=== PATIENT | female | born 1950 | race Caucasian/White ===

== ENCOUNTER → 2022-04-04 11:06 | Outpatient (CLI) | payer MEDICARE, OTHER, SELFPAY ==
--- NOTE | 2022-04-04 11:12 | DI.MRI.S_ITS ---
PROCEDURE: MR LUMBAR SPINE WO CON INDICATIONS: Radiculopathy, lumbar region TECHNIQUE: Noncontrast sagittal T1 spin echo and T2 fast echo, sagittal STIR, and T2 fast spin echo through the lumbar spine. In cases with scoliosis, additional coronal T2 fast spin echo may be performed. COMPARISON: [facility], LAY, MRI L-SPINE W/O CONTRAST, 01/09/2007, 14:49[facility], 12:08. FINDINGS: Image quality: Excellent. Alignment and Curvature: There is approximately 4 millimeters L3-L4 anterolisthesis. There is approximately 2 millimeters of L4-L5 anterolisthesis. Bone Marrow: Postsurgical changes compatible with L4-L5 TLIF. Fifth Modic type 2 reactive endplate changes noted adjacent to the L2-L3, L3-L4, L4-L5 and L5-S1 discs. No acute vertebral body compression fractures. Spinal Cord: Conus medullaris terminates at the L2 level. Visualized cord demonstrates normal signal and size. Paraspinous Soft Tissues: No paravertebral masses. T12-L1: Slight loss of disc signal. Mild, diffuse disc bulge. Mild narrowing of the central canal. No neural foraminal narrowing. No neural compression. L1-L2: Loss of disc signal. Mild, diffuse disc bulge. Mild bilateral facet hypertrophy. Mild narrowing of the central canal. Mild bilateral neural foraminal narrowing. No neural compression. L2-L3: Loss of disc signal and height. Mild, diffuse disc bulge. Large right central disc extrusion. Extruded disc material extends superiorly along the posterior margin of the L2 vertebral body to a pedicular location. Moderate bilateral facet hypertrophy. Severe narrowing of the central canal with mild compression of the traversing nerve roots of the cauda equina. Moderate right and severe left neural foraminal narrowing with slight compression of the exiting left L2 nerve root. L3-L4: Loss of disc signal and height. Mild, diffuse disc bulge. Moderate bilateral facet hypertrophy. Severe narrowing of the central canal with slight compression of the traversing nerve roots of the cauda equina. Moderate to severe right and severe left neural foraminal narrowing with slight compression of the exiting right L3 nerve root and marked compression of the exiting left L3 nerve root. L4-L5: Status post fusion. Mild bilateral facet hypertrophy. Mild narrowing of the central canal. Mild bilateral neural foraminal narrowing. No neural compression L5-S1: Loss of disc signal and slight loss of disc height. Mild, diffuse disc bulge. [id number] bilateral facet hypertrophy. No central stenosis. Moderate right and mild left neural foraminal narrowing. No neural compression. IMPRESSION: 1. Postsurgical changes. 2. Multilevel degenerative disc disease. 3. Multilevel facet arthropathy. 4. Severe L2-L3 and L3-L4 central canal narrowing with slight compression of the traversing nerve roots of the cauda equina. 5. Severe left L2-L3 neural foraminal narrowing with compression of the exiting left L2 nerve root. Moderate to severe right and severe left L3-L4 neural foraminal narrowing with slight compression of the exiting right L3 nerve root and marked compression of the exiting left L3 nerve root. 6. Large L2-L3 right central disc extrusion. Extruded disc material causes severe central canal narrowing and impinges upon the traversing nerve roots of the cauda equina. Dictated by: Bianca Florentino MD, PhD on 04/04/2022 at 14:17 Approved by: Bianca Florentino MD, PhD on 04/04/2022 at 14:30
== END ==
PROVIDERS: PCP Internal Medicine; Referring Provider Acupuncturist; Visit Provider Acupuncturist
DX: M51.16 Intervertebral disc disorders with radiculopathy, lumbar region (principal); M51.17 Intervertebral disc disorders with radiculopathy, lumbosacral region; M48.061 Spinal stenosis, lumbar region without neurogenic claudication; M48.07 Spinal stenosis, lumbosacral region; M47.26 Other spondylosis with radiculopathy, lumbar region; M47.27 Other spondylosis with radiculopathy, lumbosacral region; Z98.1 Arthrodesis status
CPT/HCPCS: 72148

== ENCOUNTER → 2022-06-17 09:25 | Outpatient (CLI) | payer MEDICARE, OTHER, SELFPAY ==
--- NOTE | 2022-06-17 | DI.CT.S_ITS ---
PROCEDURE: CT LUMBAR SPINE WO CON INDICATIONS: Spinal stenosis, lumbar region with neurogenic claudication TECHNIQUE: Noncontrast 3 mm thick sections acquired from the T12 level to the sacrum. Sagittal and coronal reformats were constructed. For radiation dose reduction, the following was used: automated exposure control. COMPARISON: [facility], , CT L SPINE WITHOUT CONTRAST, 01/03/2007, 12:08. [facility], RG, MRI L-SPINE W/O CONTRAST, 01/09/2007, 14:49. [facility], MR, MR LUMBAR SPINE WO CON, 04/04/2022, 11:17. FINDINGS: Image quality: Excellent. Bones: No acute vertebral body compression fractures. No suspicious lytic or blastic bony lesions. No pars defects. Mild dextroconvex scoliotic curvature is seen. Minimal anterolisthesis minimal anterolisthesis is seen at L4-L5 and L5-S1. T12-L1: Normal. L1-L2: Normal. L2-L3: Moderate loss of disc height is seen. Prominent vacuum disc phenomenon is seen Endplate irregularity and sclerosis can be seen. Posteriorly projected endplate osteophytes are seen. There is moderate facet hypertrophy seen, left worse than right. There is at least moderate bilateral neural foraminal narrowing seen. At least moderate central canal narrowing is seen. L3-L4: At least moderate loss of disc height is seen. Endplate irregularity and sclerosis can be seen. Vacuum disc phenomenon is seen at this level. At least moderate disc bulge is seen. There is moderate to severe bilateral neural foraminal narrowing seen, right worse than left. Moderate central canal narrowing is seen. L4-L5: Postoperative changes are seen at this level, with bilateral pedicle screws and vertical fixation rods. A disc spacer is also seen. No findings of hardware failure or hardware loosening are seen. There has been removal of portions of the posterior elements. There is mild right-sided and no left-sided neural foraminal narrowing. No central canal narrowing is seen. L5-S1: At least moderate loss of disc height is seen. Vacuum disc phenomenon is seen at this level. Endplate irregularity and sclerosis can be seen. Posteriorly projected endplate osteophytes are seen. At least moderate facet hypertrophy is seen at this level. There is moderate to severe right-sided and at least moderate left-sided neural foraminal narrowing. Mild central canal narrowing is seen. Soft tissues: No retroperitoneal masses or hematomas. Visualized aorta is normal in caliber. Atherosclerotic calcification is noted. IMPRESSION: Unremarkable L4-5 postoperative hardware, without findings of failure or loosening. Multiple levels relatively prominent lumbar spine degenerative change can be seen. Dictated by: Alexis Wright M.D. on 06/17/2022 at 16:17 Approved by: Alexis Wright M.D. on 06/17/2022 at 16:20
== END ==
PROVIDERS: PCP Internal Medicine; Referring Provider Neurological Surgery; Visit Provider Neurological Surgery
DX: M48.062 Spinal stenosis, lumbar region with neurogenic claudication (principal); Z98.1 Arthrodesis status
CPT/HCPCS: 72131

== ENCOUNTER → 2022-11-19 10:10 | Outpatient (CLI) | payer MEDICARE, OTHER, SELFPAY ==
--- NOTE | 2022-11-19 | DI.CT.S_ITS ---
PROCEDURE: CT LUMBAR SPINE WO CON INDICATIONS: SPINAL STENOSIS TECHNIQUE: Noncontrast 3 mm thick sections acquired from the T12 level to the sacrum. Sagittal and coronal reformats were constructed. For radiation dose reduction, the following was used: automated exposure control. COMPARISON: [facility], CT, CT LUMBAR SPINE WO CON, 06/17/2022, 9:33. FINDINGS: Image quality: Excellent. Bones: Patient is status post posterior fusion and posterior decompression at L2 through L4 levels with intervertebral spacer seen at L2-3 level. There is interval removal of transpedicular screws at L5 level. There is mild rightward curvature of thoracolumbar spine with apex at L2 level. No evidence of hardware loosening or failure. No acute vertebral body compression fractures. No suspicious lytic or blastic bony lesions. T12-L1: Within normal limits. L1-L2: Diffuse disc bulge and bilateral facet arthrosis is seen. Mild central canal stenosis and bilateral neural foraminal narrowing is seen. L2-L3: Postsurgical changes are noted. Bilateral facet arthrosis is seen. No significant central canal stenosis or neural foraminal narrowing. L3-L4: Postsurgical changes are noted. Degenerative endplate changes and loss of disc height is also seen. There is dorsal disc osteophyte complex formation and bilateral facet arthrosis. No significant central canal stenosis. Left worse than right bilateral neural foraminal narrowing is noted. L4-L5: Postsurgical changes are noted. There is small dorsal disc osteophyte complex formation and bilateral facet arthrosis. No significant central canal stenosis or neural foraminal narrowing. L5-S1: Loss of disc height and degenerative endplate changes are seen. Broad-based disc bulge and bilateral facet arthrosis is seen with mild central canal stenosis and mild bilateral neural foraminal narrowing. Soft tissues: No retroperitoneal masses or hematomas. Visualized aorta is normal in caliber. IMPRESSION: 1. Patient is status post interval laminectomy and posterior fusion at L2 through L4 levels. Prior fusion at L4-5 level with interval removal of fixation hardware at L5 level as above. No acute vertebral body compression fracture. No gross hardware loosening or failure. 2. Mild rightward curvature of thoracolumbar spine with apex at L2 level. 3. Degenerative disc bulge and bilateral facet arthrosis at L1-2 and L5-S1 levels as described above. Bilateral facet arthrosis are noted at L2-3 through L4-5 levels. There is dorsal disc osteophyte complex formation at L3-4 and L4-5 levels causing bilateral neural foraminal narrowing at L3-4 level as above. Dictated by: Librado Galo M.D. on 11/19/2022 at 11:25 Approved by: Librado Galo M.D. on 11/19/2022 at 13:25
== END ==
PROVIDERS: PCP Internal Medicine; Referring Provider Neurological Surgery; Visit Provider Neurological Surgery
DX: M48.062 Spinal stenosis, lumbar region with neurogenic claudication (principal); M51.36 Other intervertebral disc degeneration, lumbar region; M51.37 Other intervertebral disc degeneration, lumbosacral region; M47.816 Spondylosis without myelopathy or radiculopathy, lumbar region; M47.817 Spondylosis without myelopathy or radiculopathy, lumbosacral region; Z98.1 Arthrodesis status
CPT/HCPCS: 72131

== ENCOUNTER → 2023-02-19 12:46 | Outpatient (CLI) | payer MEDICARE, OTHER, SELFPAY ==
--- NOTE | 2023-02-19 12:48 | DI.CT.S_ITS ---
PROCEDURE: CT LUMBAR SPINE WO CON INDICATIONS: Spinal stenosis, lumbar region TECHNIQUE: Noncontrast 3 mm thick sections acquired from the T12 level to the sacrum. Sagittal and coronal reformats were constructed. For radiation dose reduction, the following was used: automated exposure control. COMPARISON: [facility], CT, CT LUMBAR SPINE WO CON, 11/19/2022, 10:21. FINDINGS: Image quality: Excellent. Bones: There is normal bony alignment. No acute vertebral body compression fractures. No suspicious lytic or blastic bony lesions. No pars defects. Rightward curvature of the lumbar spine. L2 through L4 posterior fixation with no hardware complication. T12-L1: No significant disc bulge. The foramina and central canal are patent. L1-L2: Diffuse disc bulge and mild bilateral facet arthrosis. Mild foraminal stenosis. No significant central canal stenosis. L2-L3: Postoperative changes of discectomy and posterior fixation. The foramina and central canal are patent. L3-L4: Postoperative changes. Severe endplate degenerative changes, similar to the prior CT on 11/19/2022. L4-L5: Degenerative endplate changes and loss of disc height. Facet arthrosis and grade 1 anterolisthesis. Diffuse disc bulge and disc osteophyte. Moderate central canal stenosis. L5-S1: Degenerative endplate changes and loss of disc height. Facet arthrosis causes moderate right foraminal stenosis. The left foramen is patent. Moderate central canal stenosis. Soft tissues: No retroperitoneal masses or hematomas. Visualized aorta is normal in caliber. IMPRESSION: 1. Postoperative changes as detailed above with no hardware complication. 2. Mild rightward curvature of the thoraco lumbar spine. 3. Multilevel degenerative disc disease causing foraminal stenosis as detailed above. 4. Moderate central canal stenosis at L4-5 and L5-S1 Dictated by: Curtis Lange M.D. on 02/19/2023 at 15:37 Approved by: Curtis Lange M.D. on 02/19/2023 at 16:07
== END ==
PROVIDERS: PCP Internal Medicine; Referring Provider Neurological Surgery; Visit Provider Physician Assistant
DX: M48.062 Spinal stenosis, lumbar region with neurogenic claudication (principal)
CPT/HCPCS: 72131

== ENCOUNTER → 2023-06-29 11:48 | Outpatient (CLI) | payer MEDICARE, OTHER, SELFPAY ==
--- NOTE | 2023-06-29 11:51 | DI.MRI.S_ITS ---
PROCEDURE: MR LUMBAR SPINE WO CON INDICATIONS: Spinal stenosis, lumbar region with neurogenic cla TECHNIQUE: Noncontrast sagittal T1 spin echo and T2 fast echo, sagittal STIR, and T2 fast spin echo through the lumbar spine. In cases with scoliosis, additional coronal T2 fast spin echo may be performed. COMPARISON: [facility], MR, MR LUMBAR SPINE WO CON, 04/04/2022, 11:17. FINDINGS: Image quality: Excellent. Alignment and Curvature: There is normal bony alignment. Bone Marrow: Postoperative changes of L2 through L4 posterior fixation with laminectomies and internal fixation. Fixation hardware at L5 has been removed. No abnormal signal to suggest acute fracture. Multilevel endplate degenerative changes are similar to prior MRI. Convexity of the superior endplate of L2 is unchanged. Spinal Cord: Conus medullaris terminates at the L1 level. Visualized cord demonstrates normal signal and size. Paraspinous Soft Tissues: No paravertebral masses. T12-L1: No significant disc bulge. The foramina and central canal are patent. L1-L2: The disc is desiccated consistent with degeneration. There is a diffuse disc bulge with a central/left paracentral protrusion which extends cephalad. Uncovertebral hypertrophy and facet hypertrophy. This causes mild right and severe left foraminal stenosis. The central canal has severe stenosis. L2-L3: Postoperative changes of discectomy and posterior fixation. Evaluation of the foramina is limited by artifact from fixation hardware, however the foramina appear patent. The central canal is patent. L3-L4: Postoperative changes of discectomy and posterior fixation with laminectomy. A seroma is present within the posterior soft tissues measuring 1.7 x 1.0 cm axial by 2.4 cm craniocaudal. Evaluation of the foramina is limited by artifact from fixation hardware, however the foramina appear to be patent. The central canal is patent. L4-L5: The disc is desiccated consistent with degeneration. The foramina and central canal are patent. L5-S1: The disc is desiccated consistent with degeneration. Endplate degenerative changes and diffuse disc bulge and facet hypertrophy on the right causes moderate right foraminal stenosis and mild left foraminal stenosis. The central canal is patent. IMPRESSION: 1. Postoperative changes of L2 through L5 posterior fixation with laminectomy at L3 and L4 and removal of posterior fixation at L5. 2. Severe central canal stenosis at L1-2 as detailed above. 3. Multilevel foraminal stenosis as detailed above. 3. No acute abnormality. Dictated by: Curtis Lange M.D. on 06/30/2023 at 8:33 Approved by: Curtis Lange M.D. on 06/30/2023 at 9:21
== END ==
PROVIDERS: PCP Internal Medicine; Referring Provider Physician Assistant; Visit Provider Physician Assistant
DX: M48.062 Spinal stenosis, lumbar region with neurogenic claudication (principal)
CPT/HCPCS: 72148

== ENCOUNTER → 2023-07-27 13:09 | Outpatient (CLI) | payer MEDICARE, OTHER, SELFPAY ==
--- NOTE | 2023-07-27 13:16 | DI.CT.S_ITS ---
PROCEDURE: CT LUMBAR SPINE WO CON INDICATIONS: Spinal stenosis, lumbar region with neurogenic cla TECHNIQUE: Noncontrast 3 mm thick sections acquired from the T12 level to the sacrum. Sagittal and coronal reformats were constructed. For radiation dose reduction, the following was used: automated exposure control. COMPARISON: [facility], CT, CT LUMBAR SPINE WO CON, 02/19/2023, 13:17. FINDINGS: Image quality: Excellent. Bones: Again noted is posterior lateral sandra and pedicle screw fixation of L2 through L4 and posterior decompression involving L3-L4 through L4-L5. There is an interbody spacer at L2-L3. There is evidence of a remote left L5 pedicle screw. There is interval compression fracture of the superior endplate of L2, possibly acute, with the left pedicle screw now extending through the superior endplate into the disc space minimally. No evidence of hardware failure or loosening. Alignment is not significantly changed. Trace anterolisthesis of L2 on L3 and L3 on L4. T12-L1: No canal stenosis or foraminal stenosis. L1-L2: Disc bulge. Facet hypertrophy. Mild canal stenosis. Moderate left foraminal stenosis. L2-L3: Fusion, posterior decompression. No canal stenosis or foraminal stenosis. L3-L4: Fusion. Posterior decompression. No canal stenosis there is probably no significant foraminal stenosis. L4-L5: Posterior decompression. No canal stenosis or foraminal stenosis. L5-S1: Facet hypertrophy. No canal stenosis. Moderate to severe right foraminal stenosis. Soft tissues: No retroperitoneal masses or hematomas. Visualized aorta is normal in caliber. IMPRESSION: 1. Interval L2 superior endplate compression fracture, possibly acute. The left pedicle screw of the fixation hardware now extends minimally through the superior endplate of L2 into the disc space. 2. Mild canal stenosis at L1-L2, immediately above the fusion. 3. No canal stenosis or significant foraminal stenosis identified at the fused levels. 4. Moderate to severe right foraminal narrowing at L5-S1. Dictated by: Ajit Son M.D. on 07/27/2023 at 19:59 Approved by: Ajit Son M.D. on 07/27/2023 at 20:07
== END ==
PROVIDERS: PCP Internal Medicine; Referring Provider Physician Assistant; Visit Provider Physician Assistant
DX: S32.029A Unspecified fracture of second lumbar vertebra, initial encounter for closed fracture (principal); M48.062 Spinal stenosis, lumbar region with neurogenic claudication; Z98.1 Arthrodesis status; M48.07 Spinal stenosis, lumbosacral region
CPT/HCPCS: 72131

== ENCOUNTER → 2023-10-20 09:31 | Outpatient (CLI) | payer MEDICARE, OTHER, SELFPAY ==
--- NOTE | 2023-10-20 09:38 | DI.RAD.S_ITS ---
PROCEDURE: XR LUMBAR SPINE 2-3V INDICATIONS: SPINE SURGERY TECHNIQUE: 3 views of the lumbar spine were acquired. COMPARISON: [facility], CT, CT LUMBAR SPINE WO CON, 07/27/2023, 13:17. [facility], MR, MR LUMBAR SPINE WO CON, 06/29/2023, 12:43. [facility], CT, CT LUMBAR SPINE WITH/WITHOUT CONTRAST, 06/25/2023, 12:28. FINDINGS: Extensive postsurgical posterior fusion from L1 through 5 are present, as well as kyphoplasty cement is identified. Kyphoplasty cement is noted overlying the L2-3 disc space. Hardware is intact without hardware fracture or periprosthetic lucency to suggest loosening. Alignment is stable. IMPRESSION: Postsurgical changes including cement extravasation as above. Dictated by: Korina Noel M.D. on 10/20/2023 at 15:40 Approved by: Korina Noel M.D. on 10/20/2023 at 15:42
== END ==
PROVIDERS: PCP Student in an Organized Health Care Education/Training Program; Referring Provider Neurological Surgery; Visit Provider Neurological Surgery
DX: Z98.1 Arthrodesis status (principal); Z09 Encounter for follow-up examination after completed treatment for conditions other than malignant neoplasm
CPT/HCPCS: 72100

== ENCOUNTER → 2024-01-05 09:37 | Outpatient (CLI) | payer MEDICARE, OTHER, SELFPAY ==
--- NOTE | 2024-01-05 09:41 | DI.CT.S_ITS ---
PROCEDURE: CT LUMBAR SPINE WO CON INDICATIONS: post lumbar fusion TECHNIQUE: Noncontrast 3 mm thick sections acquired from the T12 level to the sacrum. Sagittal and coronal reformats were constructed. For radiation dose reduction, the following was used: automated exposure control. COMPARISON: [facility], CT, CT LUMBAR SPINE WO CON, 07/27/2023, 13:17. FINDINGS: Image quality: Excellent. Bones: Previously, there had been posterior lateral sandra and pedicle screw fixation from L2 through L4, as well as remote posterior laminectomy at L2-L3 and L3-L4. The previous L2 screws had a superior course, and extended to or through the superior endplate. L2 headache compression fracture. There is been interval extension of the bilateral posterior lateral fusion. There is now bilateral posterior lateral fusion extending from T12 through L5. The L2 screws have a different course, and are fully within the L2 vertebral body. Also, posterior laminectomy has been performed at L1-L2. Additionally, there is been interval percutaneous cement fixation of T12, L1, L2, and L5. There is no evidence of hardware failure or loosening. No acute vertebral body compression fractures. No suspicious lytic or blastic bony lesions. No pars defects. T11-T12: No canal stenosis or foraminal stenosis. T12-L1: No canal stenosis or foraminal stenosis. L1-L2: Development of trace retrolisthesis of L1 on L2. Posterior decompressive laminectomy. No canal stenosis. Moderate left foraminal stenosis. L2-L3: Posterior decompression and posterior lateral fusion. No canal stenosis or foraminal stenosis. L3-L4: Posterior decompression and posterior lateral fusion. No canal stenosis. Moderate bilateral foraminal stenosis. L4-L5: Probable remote left hemilaminectomy. Posterior lateral fusion. No canal stenosis or foraminal stenosis.. L5-S1: Facet hypertrophy. No canal stenosis or foraminal stenosis. Soft tissues: No retroperitoneal masses or hematomas. Visualized aorta is normal in caliber. IMPRESSION: 1. Interval revision and extension of posterior lateral fusion hardware, which now spans from T12 through L5. Expected appearance. No evidence of hardware failure or loosening. 2. Interval posterior decompressive laminectomy at L1-L2. 3. Interval percutaneous cement fixation involving T12, L1, L2, and L5, with expected appearance. 4. No canal stenosis. 5. Moderate bilateral foraminal stenosis at L3-L4. Dictated by: Ajit Son M.D. on 01/05/2024 at 11:22 Approved by: Ajit Son M.D. on 01/05/2024 at 11:32
== END ==
PROVIDERS: PCP Student in an Organized Health Care Education/Training Program; Referring Provider Neurological Surgery; Visit Provider Neurological Surgery
DX: M48.061 Spinal stenosis, lumbar region without neurogenic claudication (principal); Z98.1 Arthrodesis status
CPT/HCPCS: 72131

== ENCOUNTER → 2024-04-13 08:50 | Outpatient (CLI) | payer MEDICARE, OTHER, SELFPAY ==
--- NOTE | 2024-04-13 | DI.MG.S_ITS ---
BILATERAL DIGITAL SCREENING MAMMOGRAM 3D/2D WITH CAD POST LUMPECTOMY: 04/13/2024 CLINICAL: Routine screening. Personal history of left breast cancer. Comparison is made to exams dated: 05/10/2022 mammogram, 12/12/2020 mammogram, and 12/14/2019 mammogram - [facility]. Both breasts are heterogeneously dense, which may obscure small masses (category c / 51-75% glandular tissue). Current study was also evaluated with a Computer Aided Detection (CAD) system. There are benign calcifications in the left breast. There also are benign vascular calcifications in the right breast. Additionally, there are benign post operative findings in the left breast. No significant masses, calcifications, or other findings are seen in either breast. There has been no significant interval change. IMPRESSION: BENIGN There is no mammographic evidence of malignancy. A 1 year screening mammogram is recommended. This exam was interpreted at Station ID: [id number]. NOTE: For mammograms, a report in lay terms will be sent to the patient. Approximately 15% of breast malignancies will not be visualized mammographically. In the management of a palpable breast mass, a negative mammogram must not discourage biopsy of a clinically suspicious lesion. Electronically Signed By: Trav franco/raffi:04/13/2024 09:55:43 letter sent: Normal Exam ACR BI-RADS Category 2: Benign Finding(s) [id number]
== END ==
PROVIDERS: PCP Student in an Organized Health Care Education/Training Program; Referring Provider Student in an Organized Health Care Education/Training Program; Visit Provider Student in an Organized Health Care Education/Training Program
DX: Z12.31 Encounter for screening mammogram for malignant neoplasm of breast (principal); Z85.3 Personal history of malignant neoplasm of breast; R92.333 Mammographic heterogeneous density, bilateral breasts
CPT/HCPCS: 77063; 77067

== ENCOUNTER → 2024-04-13 08:52 | Outpatient (CLI) | payer MEDICARE, OTHER, SELFPAY ==
--- NOTE | 2024-04-13 | DI.CT.S_ITS ---
PROCEDURE: CT LUMBAR SPINE WO CON INDICATIONS: S/P LUMBAR SPINAL FUSION/CLOSED FX OF 2ND L VERT TECHNIQUE: Noncontrast 3 mm thick sections acquired from the T12 level to the sacrum. Sagittal and coronal reformats were constructed. For radiation dose reduction, the following was used: automated exposure control. COMPARISON: [facility], CT, CT LUMBAR SPINE WO CON, 01/05/2024, 9:44. FINDINGS: Image quality: Excellent. Bones: Grade 1 retrolisthesis of L1-L2. Mild anterolisthesis of L4 on L5 and L5 on S1. Mild dextrocurvature of the lumbar spine. Postsurgical changes from T12 through L5 posterior spinal fixation, laminectomy and discectomy. Stable mild superior endplate fracture of L2. No acute vertebral body compression fractures. No suspicious lytic or blastic bony lesions. No pars defects. Redemonstration of multilevel degenerative changes. There is no central canal stenosis throughout. Moderate left neural foraminal stenosis at L1-L2 is redemonstrated. Moderate bilateral neural foraminal stenosis at L3-L4 stable. Soft tissues: No retroperitoneal masses or hematomas. Visualized aorta is normal in caliber. Atherosclerotic vascular calcifications. IMPRESSION: Stable appearance of multilevel degenerative changes of the lumbar spine status post T12 through L5 posterior spinal fixation and discectomy. No evidence of hardware complication. Dictated by: Jeremiah Herbert M.D. on 04/13/2024 at 12:46 Approved by: Jeremiah Herbert M.D. on 04/13/2024 at 12:51
== END ==
PROVIDERS: PCP Student in an Organized Health Care Education/Training Program; Referring Provider Neurological Surgery; Visit Provider Neurological Surgery
DX: S32.029K Unspecified fracture of second lumbar vertebra, subsequent encounter for fracture with nonunion (principal); M47.816 Spondylosis without myelopathy or radiculopathy, lumbar region; Z98.1 Arthrodesis status
CPT/HCPCS: 72131

== ENCOUNTER → 2024-08-17 12:02 | Outpatient (CLI) | payer MEDICARE, OTHER, SELFPAY ==
--- NOTE | 2024-08-17 12:16 | DI.CT.S_ITS ---
PROCEDURE: CT LUMBAR SPINE WO CON INDICATIONS: NONHEALING FRACTURE LUMBAR TECHNIQUE: Noncontrast 3 mm thick sections acquired from the T12 level to the sacrum. Sagittal and coronal reformats were constructed. For radiation dose reduction, the following was used: automated exposure control. COMPARISON: [facility], CT, CT LUMBAR SPINE WO CON, 04/13/2024, 9:43. FINDINGS: Posterior fusion instrumentation at T12-L5. Interbody spacer at L2-3, L4-5. Posterior decompression at L1-2 and L2-3. Vertebroplasty changes at T12, L1 vertebral body. Mild superior endplate fracture of L2 with vertebroplasty changes, with cement material extending into L1-2 intervertebral disc space. Vertebroplasty changes at L5. No acute fracture of the lumbar spine.No hardware complication. Mild levoscoliosis of the lumbar spine, centered at L4. Mild rightward lateral listhesis L3 on L4. Mild retrolisthesis of L1 on L2. Grade 1 anterolisthesis of L3 on L4, L4 on L5 and L5 on S1. Right osseous neural foraminal stenosis: Mild at L1-2, mild at L3-4, and L5-S1. Left osseous neural foraminal stenosis: Mild at L1-2, L3-4. Osseous central canal stenosis: None. Multilevel lumbar facet arthropathy, most pronounced and severe at L5-S1. Visualized vertebral body heights are well maintained. Sacrum is intact. Soft tissue findings: Severe calcification of the abdominal aorta. No abdominal aortic aneurysm. IMPRESSION: 1. Postprocedure changes as described above. No hardware complication. Dictated by: Yanira Bang M.D. on 08/17/2024 at 14:49 Approved by: Yanira Bang M.D. on 08/17/2024 at 15:00
== END ==
PROVIDERS: PCP Student in an Organized Health Care Education/Training Program; Referring Provider Neurological Surgery; Visit Provider Neurological Surgery
DX: S32.029G Unspecified fracture of second lumbar vertebra, subsequent encounter for fracture with delayed healing (principal); M48.061 Spinal stenosis, lumbar region without neurogenic claudication; M48.07 Spinal stenosis, lumbosacral region; M43.16 Spondylolisthesis, lumbar region; M43.17 Spondylolisthesis, lumbosacral region; M47.817 Spondylosis without myelopathy or radiculopathy, lumbosacral region; M47.816 Spondylosis without myelopathy or radiculopathy, lumbar region; M41.9 Scoliosis, unspecified; I70.0 Atherosclerosis of aorta; Z98.1 Arthrodesis status
CPT/HCPCS: 72131

== ENCOUNTER → 2025-02-17 11:17 | Outpatient (CLI) | payer MEDICARE, OTHER, SELFPAY ==
--- NOTE | 2025-02-17 11:19 | DI.CT.S_ITS ---
PROCEDURE: CT LUMBAR SPINE WO CON INDICATIONS: LUMBAR FUSION TECHNIQUE: Noncontrast 3 mm thick sections acquired from the T12 level to the sacrum. Sagittal and coronal reformats were constructed. For radiation dose reduction, the following was used: automated exposure control. COMPARISON: [facility], CT, CT LUMBAR SPINE WO CON, 08/17/2024, 12:11. FINDINGS: Image quality: Excellent. Bones: No acute vertebral body compression fractures. No suspicious lytic or blastic bony lesions. No pars defects. Extensive postoperative hardware can be seen with pedicle screws extending from T12 through L5. Vertical fixation rods can be seen. There is a disc spacer seen at the L2-L3 level. There is mild lucency seen involving the T12 screws. The hardware otherwise appears intact. Multiple levels of vertebroplasty cement can be seen. Vertebroplasty cement is seen along the L1-L2 disc level itself. There has been removal of portions of the posterior elements. Bone grafting material is noted. Mild dextroconvex scoliotic curvature is seen. There is mild retrolisthesis seen at the L1-L2 level. Generalized degenerative changes are seen, which are similar to the prior. Soft tissues: No retroperitoneal masses or hematomas. Visualized aorta is normal in caliber. Atherosclerotic calcification is noted. IMPRESSION: Extensive postoperative change. Lucency is seen adjacent to the T12 screws, which is consistent with loosening. The hardware otherwise appears unremarkable. Degenerative changes are seen, which are similar to the prior. Dictated by: Alexis Wright M.D. on 02/17/2025 at 17:14 Approved by: Alexis Wright M.D. on 02/17/2025 at 17:16
== END ==
PROVIDERS: PCP Student in an Organized Health Care Education/Training Program; Referring Provider Neurological Surgery; Visit Provider Neurological Surgery
DX: S32.029G Unspecified fracture of second lumbar vertebra, subsequent encounter for fracture with delayed healing (principal); Y99.9 Unspecified external cause status; Z98.1 Arthrodesis status
CPT/HCPCS: 72131

== ENCOUNTER → 2025-09-19 09:06 | Outpatient (CLI) | payer MEDICARE, OTHER, SELFPAY ==
--- NOTE | 2025-09-19 | DI.CT.S_ITS ---
PROCEDURE: CT LUMBAR SPINE WO CON INDICATIONS: status post lumbar fusion TECHNIQUE: Noncontrast 3 mm thick sections acquired from the T12 level to the sacrum. Sagittal and coronal reformats were constructed. For radiation dose reduction, the following was used: automated exposure control. COMPARISON: [facility], CT, CT LUMBAR SPINE WO CON, 02/17/2025, 11:51. FINDINGS: T12-L5 posterior spinal fusion with instrumentation. No hardware change in alignment. Interbody cage at L2-L3 and L4-L5. Vertebral body augmentation at T12, L1 and L5. Laminectomy at L1, L2, L3. Lucency at right T12 pedicle screw increased from prior. Lucency along left pedicle screws similar to prior. Atherosclerosis. No paraspinous mass or fluid collection. No aggressive appearing osseous lesion. 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 Unchanged osteolysis along the left T12 pedicle screw. No change in hardware position. No new foraminal or canal stenosis secondary to bony hypertrophy. Dictated by: Iain Tan M.D. on 09/19/2025 at 16:04 Approved by: Iain Tan M.D. on 09/19/2025 at 16:15
== END ==
LOC: CT 09:06
PROVIDERS: PCP Student in an Organized Health Care Education/Training Program; Referring Provider Physician Assistant; Visit Provider Physician Assistant
DX: S32.029D Unspecified fracture of second lumbar vertebra, subsequent encounter for fracture with routine healing (principal); M89.58 Osteolysis, other site; Z98.1 Arthrodesis status
CPT/HCPCS: 72131